=== PATIENT | male | born 1990 | race Caucasian/White ===

== ENCOUNTER 2019-10-02 13:32 | Emergency (ER) | payer OTHER ==
--- NOTE | 2019-10-02 14:32 | XR ---
EXAMINATION TYPE: XR chest 2V DATE OF EXAM: 10/02/2019 COMPARISON: 10/29/2017 HISTORY: Chest pressure TECHNIQUE: Frontal and lateral views of the chest are obtained. FINDINGS: Heart and mediastinum are normal. Lungs are clear. Diaphragm is normal. Bony thorax is int act. IMPRESSION: Normal chest. No change.
[2019-10-02 14:33] LABS: Basophils # (A) 0.1 k/uL (0-0.2); Basophils % (A) 1 %; Eosinophils # (A) 0.1 k/uL (0-0.7); Eosinophils % (A) 1 %; HCT 47.2 % (39.0-53.0); HGB 15.7 gm/dL (13.0-17.5); Lymphocytes # (A) 1.3 k/uL (1.0-4.8); Lymphocytes % (A) 17 %; MCH 29.5 pg (25.0-35.0); MCHC 33.2 g/dL (31.0-37.0); MCV 88.8 fL (80.0-100.0); Mean Platelet Volume 6.3; Monocytes # (A) 0.3 k/uL (0-1.0); Monocytes % (A) 5 %; Neutrophils # (A) 5.5 k/uL (1.3-7.7); Neutrophils % (A) 74 %; Platelet Count 316 k/uL (150-450); RBC 5.32 m/uL (4.30-5.90); WBC 7.4 k/uL (3.8-10.6)
[2019-10-02 14:45] LABS: ALT 25 U/L (21-72); AST 24 U/L (17-59); African American GFR (CKD) >90 (>60 ml/min/1.73 sqM); Albumin 4.5 g/dL (3.5-5.0); Alkaline Phosphatase 75 U/L (38-126); Anion Gap 6 mmol/L; Blood Urea Nitrogen 12 mg/dL (9-20); Calcium 9.3 mg/dL (8.4-10.2); Carbon Dioxide 26 mmol/L (22-30); Chloride 106 mmol/L (98-107); Glucose 102 mg/dL (74-99); Magnesium 1.8 mg/dL (1.6-2.3); Potassium 3.9 mmol/L (3.5-5.1); Sodium 138 mmol/L (137-145); Total Bilirubin 0.3 mg/dL (0.2-1.3); Total Protein 7.6 g/dL (6.3-8.2)
[2019-10-02 14:48] LABS: INR 0.9 (<1.2); Partial Thromboplastin Time 21.3 sec (22.0-30.0); Prothrombin Time 10.2 sec (9.0-12.0)
[2019-10-02 14:57] VITALS: RESP 18
[2019-10-02] MEDS ORDERED: ASPIRIN 325 MG TAB PO STA (14:58)
--- NOTE | 2019-10-02 15:02 | ED ---
Chest Pain HPI - General Chief Complaint: Chest Pain Stated Complaint: lt sided pain Time Seen by Provider: 10/02/19 13:51 Source: patient, RN notes reviewed, old records reviewed Mode of arrival: ambulatory Limitations: no limitations - History of Present Illness Initial Comments: Patient is a 29 year old male presents today for concern for left sided chest pain after smoking marijuana. PAtient reports that he had this 2 weeks ago and was seen at [facility]. At that time patient was diagnosed with anxiety. Patient reports that he has no fevers or chills or cough. Patient has no history of heart problems. - Related Data Allergies Allergy/AdvReac Type Severity Reaction Status Date / Time No Known Allergies Allergy Verified 10/02/19 13:37 Review of Systems ROS Statement: Those systems with pertinent positive or pertinent negative responses have been documented in the HPI. ROS Other: All systems not noted in ROS Statement are negative. EKG Findings - EKG Comments: EKG Findings:: EKG shows normal sinus rhythm with sinus arrhythmia, where axis. ST elevation early polarization, pericarditis or injury. Ventricular rate is 73 bpm period. Intervals 142 ms. QRS duration is 12-bbbdh-pjd seconds. QT QTc is 3:30/392 ms. Past Medical History Past Medical History: No Reported History History of Any Multi-Drug Resistant Organisms: None Reported Past Surgical History: No Surgical Hx Reported Past Psychological History: Anxiety Smoking Status: Current every day smoker Past Alcohol Use History: Occasional Past Drug Use History: Marijuana General Exam - General Exam Comments Initial Comments: 29 year old male, no distress. Limitations: no limitations General appearance: alert, in no apparent distress Head exam: Present: atraumatic, normocephalic, normal inspection Eye exam: Present: normal appearance, PERRL, EOMI. Absent: scleral icterus, conjunctival injection, periorbital swelling ENT exam: Present: normal exam, mucous membranes moist Neck exam: Present: normal inspection. Absent: tenderness, meningismus, lymphadenopathy Respiratory exam: Present: normal lung sounds bilaterally. Absent: respiratory distress, wheezes, rales, rhonchi, stridor Extremities exam: Present: normal inspection, full ROM, normal capillary refill. Absent: tenderness, pedal edema, joint swelling, calf tenderness Back exam: Present: normal inspection Neurological exam: Present: alert, oriented X3, CN II-XII intact Psychiatric exam: Present: normal affect, normal mood Skin exam: Present: warm, dry, intact, normal color. Absent: rash Course Vital Signs 10/02/19 10/02/19 10/02/19 13:33 14:08 14:56 Temperature 97.3 F L Pulse Rate 83 88 Pulse Rate [ 69 [employer] ] Respiratory 16 18 Rate Blood Pressure 129/85 137/81 O2 Sat by Pulse 99 98 Oximetry 10/02/19 16:15 Temperature 98.1 F Pulse Rate 92 Pulse Rate [ [employer]ist ] Respiratory 18 Rate Blood Pressure 135/77 O2 Sat by Pulse 98 Oximetry Chest Pain MDM - MDM 29 year old male presents today for concern for left sided chest pain after smoking marijuana. Patient EKG shows Hyperpolarization, with ST changes. This is no change in previos EKG from [facility] when he presented for similiar complaints this past month. Patient has no CXR changes. LAbs are reviewed and unremarkable. Chest pain is likley from anxiety after drug use. Discussed patient needs to follow up with PCP. Disucssed smoking cessation. Discussed return parameters. Disposition Clinical Impression: Anxiety, Atypical chest pain Disposition: HOME SELF-CARE Condition: Good Instructions (If sedation given, give patient instructions): Chest Pain (ED) Additional Instructions: Follow-up with your primary care doctor. Stop smoking weed. Return to the emergency department if any alarming signs or symptoms occur. Is patient prescribed a controlled substance at d/c from ED?: No Referrals: Brielle Jackson MD [Primary Care Provider] - 1-2 days Time of Disposition: 16:07
[2019-10-02] MEDS ORDERED: LORazepam 1 MG TAB PO STA (15:13)
[2019-10-02 16:17] VITALS: BP 135/77; PULSE 92; TEMP 98.1
== END 2019-10-02 16:16 | disposition home or self-care (01) ==
LOC: EC 13:32
DX: F41.9 Anxiety disorder, unspecified (principal); R07.89 Other chest pain; R94.31 Abnormal electrocardiogram [ECG] [EKG]; F17.200 Nicotine dependence, unspecified, uncomplicated
CPT/HCPCS: 36415; 71046; 80053; 83735; 84484; 85025; 85610; 85730; 93005; 99285